=== PATIENT | female | born 1990 | race Caucasian/White ===

== ENCOUNTER 2023-09-10 10:10 | Emergency (ER) | payer BC ==
[~2023-09-10] VITALS: Ht 170.2 cm; Wt 127.0 kg
[2023-09-10 10:16] VITALS: TEMP 98.7; O2SAT 100
[2023-09-10 10:53] LABS: BASOPHILS % 0.5 % (0.0-2.0); EOSINOPHILS % 2.3 % (0.0-5.0); HEMATOCRIT. 31.7 % (36.0-48.0); MEAN CORPUSCULAR HGB CONC 31.4 g/dL (31.0-37.0); MEAN PLATELET VOLUME 7.9 fl (7.4-10.4); MONOCYTES % 5.1 % (2.0-8.0); NEUTROPHILS % 67.1 % (40.0-76.0); PLATELET 323 x1000/uL (130-400); RED BLOOD CELL COUNT 4.74 mill/uL (4.2-5.4); RED CELL DISTRIBUTION WIDTH 17.3 % (11.6-14.6); WHITE BLOOD COUNT 6.8 x1000/uL (4.5-11.0)
[2023-09-10 11:00] LABS: CHLORIDE 107 mEq/L (98-107); POTASSIUM 3.7 mEq/L (3.5-5.1); SODIUM 138 mEq/L (136-145)
[2023-09-10 11:01] LABS: CARBON DIOXIDE 26 mEq/L (21-32)
[2023-09-10 11:04] LABS: ADD RBC MORPHOLOGY YES; DIFFERENTIAL COMMENT 1
[2023-09-10 11:06] LABS: CREATININE 0.6 mg/dL (0.6-1.0); GLUCOSE 104 mg/dL (70-105); UREA NITROGEN BLOOD 7 mg/dL (9-23)
[2023-09-10 11:08] LABS: TROPONIN I HIGH SENSITIVITY 22 ng/L (3.0-34)
[2023-09-10 11:41] LABS: ANISOCYTOSIS 1+; MICROCYTOSIS 3+; PLATELET ESTIMATE NORMAL
[2023-09-10 12:15] LABS: HCG SCREEN NEGATIVE
[2023-09-10] MEDS: IBUPROFEN 600MG TABLET PO SCH (12:35)
[2023-09-10 14:16] LABS: TROPONIN I HIGH SENSITIVITY 21 ng/L (3.0-34)
[2023-09-10] MEDS ORDERED: IBUP-2028 MT (14:29)
[2023-09-10 14:40] VITALS: BP 122/70; PULSE 65; RESP 14
== END 2023-09-10 15:15 | disposition home or self-care (01) ==
LOC: ER 10:10
DX: R07.9 Chest pain, unspecified (principal); D64.9 Anemia, unspecified
CPT/HCPCS: 36415; 71045; 80048; 84484; 84703; 85025; 85379; 93005; 99285

== ENCOUNTER 2024-05-30 14:33 | Emergency (ER) | payer BC ==
[~2024-05-30] VITALS: Ht 167.6 cm; Wt 105.0 kg
[~2024-05-30 14:33] MED LIST: IBUP-2028 MT
[2024-05-30 14:44] VITALS: BP 149/88; PULSE 71; RESP 18; TEMP 36.8; O2SAT 98; O2SAT 99
== END 2024-05-30 15:47 | disposition home or self-care (01) ==
LOC: ER 14:33
DX: Z00.8 Encounter for other general examination (principal); V43.52XA Car driver injured in collision with other type car in traffic accident, initial encounter; Y93.89 Activity, other specified; Y92.89 Other specified places as the place of occurrence of the external cause; Y99.8 Other external cause status
CPT/HCPCS: 99281